=== PATIENT | male | born 1970 | race Caucasian/White ===

== ENCOUNTER 2018-12-17 16:40 | Emergency (ER) | payer MEDICARE, MEDICAID ==
[~2018-12-17] VITALS: Ht 162.6 cm; Wt 90.7 kg
--- NOTE | 2018-12-17 16:40 | NUR ---
PT TO ED 5 AMBULATORY. SEE TRIAGE NOTE. PT IS NOT ON BLOOD THINNER. NO LOC. PRIOR HX BRAIN SURGERY--SUBDURAL HEMATOMA WITH BRAIN SHIFT AFTER A FALL HITTING POSTERIOR HEAD. PT HAD BORE HOLES PLACED AT THAT TIME 2000. 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 MADE AWARE OF PRIOR HEAD INJURY HX.
--- NOTE | 2018-12-17 16:56 | ED Integumentary General ---
General Chief Complaint: Scalp laceration Stated Complaint: LT SIDE HEAD LAC Source: patient, family Exam Limitations: no limitations History of Present Illness Date Seen by Provider: Dec 17, 2018 Time Seen by Provider: 16:50 Timing/Duration: just prior to arrival 48-year-old male who had a truck beavers hit his posterior head on he was working underneath the beavers. Is occurred approximately 20 minutes ago. He is on no blood thinners, no ibuprofen or aspirin, no antiplatelets. He did not lose consciousness, has no nausea, no change in vision, no weakness, no headache. His last tetanus shot was approximately one year ago. Allergies and Home Medications Allergies Coded Allergies: No Known Drug Allergies (Unverified , 12/17/18) Patient Home Medication List Home Medication List Reviewed: Yes Review of Systems Review of Systems Constitutional: see HPI EENTM: see HPI Cardiovascular: no symptoms reported Psychiatric/Neurological: No Symptoms Reported Past Ysboqvd-Ubhtez-Enwqng Hx Past Med/Social Hx: Reviewed Nursing Past Med/Soc Hx Patient Social History Recent Foreign Travel: No Contact w/Someone Who Travel: No Physical Exam Vital Signs Capillary Refill : General Appearance: WD/WN, no apparent distress HEENT: PERRL/EOMI, normal ENT inspection, TMs normal, pharynx normal, other ( Positive curvilinear laceration over the posterior scalp) Neck: non-tender, full range of motion, supple, normal inspection Cardiovascular: normal peripheral pulses, regular rate, rhythm, no edema, no gallop, no JVD, no murmur Respiratory: chest non-tender, lungs clear, normal breath sounds, no respiratory distress, no accessory muscle use 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 There were no debris or foreign bodies noted 7 rossy. Progress/Results/Core Measures Results/Orders My Orders Orders - NOLAN BROTHERS MD Lidocaine 1% Inj 20 Ml (Xylocaine 1% Inj (12/17/18 16:58) Lidocaine 1% Inj 20 Ml (Xylocaine 1% Inj (12/17/18 17:15) Medications Given in ED Current Medications Medications Dose Ordered Sig/Katya Route Start Time Stop Time Status Last Admin Dose Admin Lidocaine HCl 20 ml ONCE ONCE INJ 12/17/18 17:15 12/17/18 17:16 DC 12/17/18 17:15 20 ML Departure Impression Primary Impression: Laceration of scalp Disposition: HOME, SELF-CARE Condition: Improved Departure-Patient Inst. Decision time for Depature: 17:24 Referrals: NO,LOCAL PHYSICIAN (PCP) Primary Care Physician Patient Instructions: Laceration Repair With Rossy (DC) Add. Discharge Instructions: return to ED in 7-10 days for staple removal. NOLAN BROTHERS MD Dec 17, 2018 16:56
[2018-12-17] MEDS ORDERED: LIDOCAINE 1% INJ 20 ML 20 ML VIAL ONE (16:58)
--- NOTE | 2018-12-17 17:05 | NUR ---
IRRIGATION WITH EXTENSIVE CLEANING WITH BETASEPT PERFORMED. DR ASKED FOR RAZOR TO TRIM HAIR AWARE FROM SITE.
[2018-12-17] MEDS ORDERED: LIDOCAINE 1% INJ 20 ML 20 ML VIAL INJ ONE (17:15)
--- NOTE | 2018-12-17 17:20 | NUR ---
PT HAD REPAIR WORK OF LAC COMPLETED WITH 7 MEAGAN PLACED. PT TOLERATED WELL. ASKED MD REGARDING A CT HEAD NEEDED OR NOT AND DR REPORTED PT'S NEURO EXAMINE APPEARS NORMAL AND HE WOULD NOT ORDER UNLESS THEY WANTED ONE PER THEIR REQUEST. DECLINATION AT THIS TIME.
[2018-12-17 17:35] VITALS: BP 138/90
== END 2018-12-17 17:35 | disposition home or self-care (01) ==
LOC: EDUNIT# 16:44 → ER FS 16:45
DX: S01.01XA Laceration without foreign body of scalp, initial encounter (principal); W22.09XA Striking against other stationary object, initial encounter
CPT/HCPCS: 12002

== ENCOUNTER → 2018-12-19 | Outpatient (CLI) | payer MEDICAID, MEDICARE ==
[~2018-12-19] MED LIST: CATHETER FLUSH 10 ML SYR IV PRN
--- NOTE | 2018-12-19 19:41 | Diagnostic Imaging Report ---
INDICATION: Right upper quadrant abdominal pain. EXAMINATION: Nuclear hepatobiliary study performed in the routine fashion with intravenous injection of 5.29 mCi of technetium 99m Choletec. FINDINGS: There is prompt uptake of the tracer by the liver. Tracer is visualized in the biliary tree within 10-15 minutes. Tracer is visualized in the gallbladder within 10-15 minutes. Tracer is visualized in the small bowel within 1 hour. The patient was then given Ensure, orally. The gallbladder ejection fraction was calculated. The calculated gallbladder ejection fraction was 47 percent. IMPRESSION: Normal nuclear hepatobiliary study with normal gallbladder ejection fraction. Dictated by: Dictated on workstation # [id number]
== END ==
LOC: CARD 09:15 → EDUNIT# 12-25 10:00
PROVIDERS: ATTEND Pediatrics
DX: R10.11 Right upper quadrant pain (principal)
CPT/HCPCS: 78227

== ENCOUNTER 2018-12-23 13:24 | Emergency (ER) | payer MEDICARE, MEDICAID ==
[~2018-12-23] VITALS: Ht 162.6 cm; Wt 90.7 kg
[2018-12-23 13:30] VITALS: BP 127/98
--- NOTE | 2018-12-23 13:30 | NUR ---
PT ARRIVAL FOR SUTURAL REMOVAL ORDERED TO BE REMOVED IN 7-10 DA[address] FROM DECEMBER 17. [address] SR'S SUTURES TO BE REMOVED.
--- NOTE | 2018-12-23 13:35 | NUR ---
PT DISCHARGED AFTER REMOVAL OF 7 MEAGAN. NOTED LOOSENING OF LARGE SCABS OF BLOOD AND ADVISING TO NOT PICK AT SCABS OR ABRASIVELY RUB. CONTINUE CLEAN WATER OVER AREA LIKE SHOWERING BUT NO SWIMMING, HOT TUBS, OR EXPOSURE TO DIRTY/CONTAMINATED WATER. KEEP CLEAN WITH DAILY WASHING AND ALLOW TO REMAIN DRY FOR ANOTHER WEEK OF HEALING.
== END 2018-12-23 13:35 | disposition home or self-care (01) ==
LOC: EDUNIT# 13:24 → ER FS 13:26
DX: S01.81XD Laceration without foreign body of other part of head, subsequent encounter (principal); X58.XXXD Exposure to other specified factors, subsequent encounter

== ENCOUNTER → 2018-12-24 | Outpatient (CLI) | payer MEDICARE, MEDICAID ==
[~2018-12-24] MED LIST changes: -CATHETER FLUSH 10 ML SYR IV PRN; +IOHEXOL 350 MG/ML 100 ML (OMNIPAQUE 350) VIAL IV ONE; +NS 100 ML (IVPB) BAG IV ONE; +RECEIVED CONTRAST 20 ML VIAL IV SCH
[2018-12-24 09:34] LABS: ALANINE AMINOTRANSFERASE 81 U/L (0-55); ALBUMIN 4.2 GM/DL (3.2-4.5); ALKALINE PHOSPHATASE 73 U/L (40-136); BILIRUBIN,TOTAL 0.6 MG/DL (0.1-1.0); BUN/CREATININE RATIO 16; CALCIUM 9.2 MG/DL (8.5-10.1); CARBON DIOXIDE 22 MMOL/L (21-32); CHLORIDE 107 MMOL/L (98-107); CREATININE SERUM 0.96 MG/DL (0.60-1.30); GFR ESTIMATED > 60; GLUCOSE 125 MG/DL (70-105); POTASSIUM 4.4 MMOL/L (3.6-5.0); SODIUM 139 MMOL/L (135-145)
--- NOTE | 2018-12-24 10:45 | Diagnostic Imaging Report ---
PROCEDURE: CT abdomen and pelvis with contrast. TECHNIQUE: Multiple contiguous axial images were obtained through the abdomen and pelvis after administration of intravenous contrast. INDICATION: Right lower quadrant pain and elevated liver enzymes. FINDINGS: The heart size is normal. The lung bases are clear. The liver is normal in size without focal lesions. The gallbladder is unremarkable. There is no biliary ductal dilatation. The spleen is normal. The pancreas, adrenal glands, and kidneys are normal in appearance. The aorta is nonaneurysmal. The bowel gas pattern is nonspecific. There is no free air. There is no ascites. There are no focal inflammatory changes. There is no pelvic mass, adenopathy, or free fluid. The bladder is normal. There are mild degenerative changes in the spine. The appendix is normal. IMPRESSION: No acute abnormality in the abdomen or pelvis. Dictated by: Dictated on workstation # [id number]
== END ==
LOC: RAD 08:58
PROVIDERS: ATTEND Pediatrics
DX: R10.31 Right lower quadrant pain (principal); R94.5 Abnormal results of liver function studies
CPT/HCPCS: 36415; 74177; 80053

== ENCOUNTER 2018-12-28 21:13 | Emergency (ER) | payer MEDICAID, MEDICARE ==
[~2018-12-28] VITALS: Ht 165.1 cm; Wt 90.7 kg
[2018-12-28] MEDS ORDERED: NS IV 1000 ML 1,000 ML ONE (21:52)
[2018-12-28] MEDS ORDERED: ACETAMINOPHEN 500 MG TAB (TYLENOL) ONE (21:52)
[2018-12-28] MEDS: NS IV 1000 ML 1,000 ML IV SCH ×2 (21:56→22:42)
[2018-12-28 22:19] LABS: BASOPHILS % (AUTO) 0 % (0-10); EOSINOPHILS % (AUTO) 1 % (0-10); HEMATOCRIT 42 % (40-54); HEMOGLOBIN 15.2 G/DL (13.3-17.7); LYMPHOCYTES # (AUTO) 0.6 X 10^3 (1.0-4.0); LYMPHOCYTES % (AUTO) 11 % (12-44); MEAN CORPUSCULAR HEMOGLOBIN 32 PG (25-34); MEAN CORPUSCULAR HGB CONC 36 G/DL (32-36); MEAN CORPUSCULAR VOLUME 90 FL (80-99); MEAN PLATELET VOLUME 10.1 FL (7.4-10.4); MONOCYTES # (AUTO) 0.9 X 10^3 (0.0-1.0); MONOCYTES % (AUTO) 17 % (0-12); NEUTROPHILS # (AUTO) 3.6 X 10^3 (1.8-7.8); NEUTROPHILS % (AUTO) 70 % (42-75); PLATELET COUNT 139 10^3/uL (130-400); RED CELL DISTRIBUTION WIDTH 12.6 % (10.0-14.5); WHITE BLOOD COUNT 5.1 10^3/uL (4.3-11.0)
[2018-12-28 22:20] LABS: BILIRUBIN,URINE NEGATIVE (NEGATIVE); CLARITY,URINE CLEAR; COLOR,URINE YELLOW; GLUCOSE, URINE (UA) NEGATIVE (NEGATIVE); KETONES,URINE 2+ (NEGATIVE); LEUKOCYTE ESTERASE ,URINE 1+ (NEGATIVE); NITRITE,URINE NEGATIVE (NEGATIVE); PH,URINE 5 (5-9); PROTEIN,URINE 2+ (NEGATIVE); UROBILINOGEN,URINE 1 MG/DL (NORMAL)
[2018-12-28 22:26] LABS: BACTERIA,URINE TRACE /HPF; RBC,URINE RARE /HPF; SQUAMOUS EPITHELIAL CELL,UR RARE /HPF; WBC,URINE RARE /HPF
[2018-12-28] MEDS ORDERED: FAMOTIDINE 20 MG (PEPCID) TABLET PO STA (22:27)
[2018-12-28] MEDS ORDERED: cefTRIAXone FOR IV USE 1,000 MG in WATER (STERILE) FOR INJECTION 10 ML IV ONE (22:30)
[2018-12-28] MEDS ORDERED: LIDOCAINE 2% VISCOUS 15 ML UDC PO ONE (22:30)
[2018-12-28] MEDS ORDERED: metroNIDAZOLE 500MG/100ML IVPB 100 ML IV ONE (22:30)
[2018-12-28] MEDS ORDERED: ANTACID SUSP 30 ML UDC (MYLANTA) PO ONE (22:30)
[2018-12-28 22:32] LABS: ALANINE AMINOTRANSFERASE 136 U/L (0-55); ALBUMIN 4.4 GM/DL (3.2-4.5); ALKALINE PHOSPHATASE 72 U/L (40-136); BILIRUBIN,TOTAL 0.9 MG/DL (0.1-1.0); BUN/CREATININE RATIO 12; CALCIUM 8.9 MG/DL (8.5-10.1); CARBON DIOXIDE 23 MMOL/L (21-32); CHLORIDE 99 MMOL/L (98-107); CREATININE SERUM 1.23 MG/DL (0.60-1.30); GFR ESTIMATED > 60; GLUCOSE 106 MG/DL (70-105); POTASSIUM 4.1 MMOL/L (3.6-5.0); PROTHROMBIN TIME PATIENT 13.1 SEC (12.2-14.7); SODIUM 132 MMOL/L (135-145); TOTAL PROTEIN 7.3 GM/DL (6.4-8.2)
--- NOTE | 2018-12-28 22:34 | ED Abdominal Pain ---
General Chief Complaint: Fever-Adult/Adol Stated Complaint: FEVER,ABD PAIN Nursing Triage Note: PT PRESENTS TO ER WITH COMPLAINT OF BACK PAIN THAT RADIATES TO ABD. STATES HE HAS BEEN SEEING DR SALDANA FOR SYMTPOMS, HAS HAD LAB WORK, ABD CT SCAN AND HIDA SCAN DONE. ONLY RESULTS WERE MILDLY ELEVATED LIVER ENZYMES. STATES HE IS HAVING DIFFICULTY URINATING. STATES STARTED RUNNING FEVER TODAY. LAST TOOK TYLNEOL AT 1400. Sepsis Screen: No Definite Risk Source of Information: Patient, Spouse Exam Limitations: No Limitations History of Present Illness Date Seen by Provider: Dec 28, 2018 Time Seen by Provider: 22:24 Initial Comments Patient presents ER by private conveyance with chief complaint of abdominal pain starting in his back wrapping around his left and right upper quadrants as well as his epigastric region. He is not having any nausea right now. He does feel a little distended but is passing gas and belching both. He's been worked up outpatient with ultrasound and HIDA scan by Dr. Saldana and they found some biliary sludge but nothing else. 4 days ago he had a CT scan for his abdominal pain that did not reveal anything. Today however he developed a fever 102. His gave him some Tylenol thousand grams about 2:00 in the afternoon. Takes meloxicam she cannot take ibuprofen. In his not been on any antibiotics. No coughing, wheezing, shortness of breath, diarrhea. Allergies and Home Medications Allergies Coded Allergies: No Known Drug Allergies (Unverified , 12/17/18) Patient Home Medication List Home Medication List Reviewed: Yes Review of Systems Review of Systems Constitutional: chills, fever, malaise EENTM: No Blurred Vision, No Double Vision Respiratory: Denies Cough, Denies Shortness of Air, Denies SOA With Exertion, Denies Wheezing Cardiovascular: Denies Chest Pain, Denies Edema Gastrointestinal: See HPI, Abdomen Distended, Abdominal Pain; Denies Nausea; Poor Appetite, Poor Fluid Intake; Denies Vomiting Genitourinary: Denies Discharge, Denies Drainage Musculoskeletal: No back pain, No joint pain Skin: No pruritus, No rash Psychiatric/Neurological: Denies Headache, Denies Numbness Past Jlprwwi-Facwue-Vbwzam Hx Patient Social History Alcohol Use: Denies Use Recreational Drug Use: No Smoking Status: Former Smoker Type Used: Cigarettes, Smokeless Tobacco Former Smoker, Quit: Oct 15, 2018 Recent Foreign Travel: No Contact w/Someone Who Travel: No Recent Infectious Disease Expo: No Recent Hopitalizations: No Immunizations Up To Date Tetanus Booster (TDap): Unknown PED Vaccines UTD: Yes Seasonal Allergies Seasonal Allergies: No Past Medical History Surgeries: Yes (BRAIN SURGERY, ESOPHAGEAL DILITATION, TRAUMA SUTURING ) Respiratory: No Cardiac: Yes Hypertension Neurological: Yes (SUBDURAL HEMATOMA WITH BRAIN SHIFT) Traumatic Brain Injury Genitourinary: No Gastrointestinal: Yes Gall Bladder Disease Musculoskeletal: No Endocrine: No HEENT: No Cancer: No Psychosocial: No Integumentary: Yes Eczema, Psoriasis Blood Disorders: No Physical Exam Vital Signs Vital Signs - First Documented 12/28/18 21:37 Temp 102.8 Pulse 116 Resp 17 B/P (MAP) 143/92 (109) Pulse Ox 94 O2 Delivery Room Air Capillary Refill : Less Than 3 Seconds Height/Weight/BMI Height: 5'5.00" Weight: 200lbs. oz. 90.224379lk; 28.12 BMI Method:Stated General Appearance: WD/WN, mild distress HEENT: PERRL/EOMI, normal ENT inspection, pharynx normal Neck: non-tender, full range of motion Respiratory: chest non-tender, lungs clear, normal breath sounds, no respiratory distress, no accessory muscle use Cardiovascular: normal peripheral pulses, regular rate, rhythm, no edema Peripheral Pulses: 2+ Radial Pulses (R), 2+ Radial Pulses (L) Gastrointestinal: normal bowel sounds, soft, no organomegaly, tenderness ( epigastric region [id number]), other (negative for Olivas sign or mesenteric signs.) Neurologic/Psychiatric: alert, normal mood/affect, oriented x 3 Skin: normal color, warm/dry Focused Exam Lactate Level 12/28/18 21:50: Lactic Acid Level 0.86 Lactic Acid Level Laboratory Tests Test 12/28/18 21:50 Lactic Acid Level 0.86 MMOL/L (0.50-2.00) Progress/Results/Core Measures Results/Orders Lab Results Laboratory Tests Test 12/28/18 21:50 Range/Units White Blood Count 5.1 4.3-11.0 10^3/uL Red Blood Count 4.74 4.35-5.85 10^6/uL Hemoglobin 15.2 13.3-17.7 G/DL Hematocrit 42 40-54 % Mean Corpuscular Volume 90 80-99 FL Mean Corpuscular Hemoglobin 32 25-34 PG Mean Corpuscular Hemoglobin Concent 36 32-36 G/DL Red Cell Distribution Width 12.6 10.0-14.5 % Platelet Count 139 130-400 10^3/uL Mean Platelet Volume 10.1 7.4-10.4 FL Neutrophils (%) (Auto) 70 42-75 % Lymphocytes (%) (Auto) 11 L 12-44 % Monocytes (%) (Auto) 17 H 0-12 % Eosinophils (%) (Auto) 1 0-10 % Basophils (%) (Auto) 0 0-10 % Neutrophils # (Auto) 3.6 1.8-7.8 X 10^3 Lymphocytes # (Auto) 0.6 L 1.0-4.0 X 10^3 Monocytes # (Auto) 0.9 0.0-1.0 X 10^3 Eosinophils # (Auto) 0.0 0.0-0.3 10^3/uL Basophils # (Auto) 0.0 0.0-0.1 10^3/uL Prothrombin Time 13.1 12.2-14.7 SEC INR Comment 1.0 0.8-1.4 Activated Partial Thromboplast Time 36 H 24-35 SEC Urine Color YELLOW Urine Clarity CLEAR Urine pH 5 5-9 Urine Specific [place] 1.020 1.016-1.022 Urine Protein 2+ H NEGATIVE Urine Glucose (UA) NEGATIVE NEGATIVE Urine Ketones 2+ H NEGATIVE Urine Nitrite NEGATIVE NEGATIVE Urine Bilirubin NEGATIVE NEGATIVE Urine Urobilinogen 1 NORMAL MG/DL Urine Leukocyte Esterase 1+ H NEGATIVE Urine RBC (Auto) 1+ H NEGATIVE Urine RBC RARE /HPF Urine WBC RARE /HPF Urine Squamous Epithelial Cells RARE /HPF Urine Crystals NONE /LPF Urine Bacteria TRACE /HPF Urine Casts NONE /LPF Urine Mucus SMALL H /LPF Urine Culture Indicated CULTURE PENDING Sodium Level 132 L 135-145 MMOL/L Potassium Level 4.1 3.6-5.0 MMOL/L Chloride Level 99 98-107 MMOL/L Carbon Dioxide Level 23 21-32 MMOL/L Anion Gap 10 5-14 MMOL/L Blood Urea Nitrogen 15 7-18 MG/DL Creatinine 1.23 0.60-1.30 MG/DL Estimat Glomerular Filtration Rate > 60 BUN/Creatinine Ratio 12 Glucose Level 106 H 70-105 MG/DL Lactic Acid Level 0.86 0.50-2.00 MMOL/L Calcium Level 8.9 8.5-10.1 MG/DL Corrected Calcium 8.6 8.5-10.1 MG/DL Total Bilirubin 0.9 0.1-1.0 MG/DL Aspartate Amino Transf (AST/SGOT) 80 H 5-34 U/L Alanine Aminotransferase (ALT/SGPT) 136 H 0-55 U/L Alkaline Phosphatase 72 40-136 U/L Total Protein 7.3 6.4-8.2 GM/DL Albumin 4.4 3.2-4.5 GM/DL Lipase 12 8-78 U/L My Orders Orders - ANA LUISA NEVES Ns Iv 1000 Ml (Sodium Chloride 0.9%) (12/28/18 21:52) Acetaminophen Tablet (Tylenol Tablet) (12/28/18 21:52) Cbc With Automated Diff (12/28/18 22:12) Comprehensive Metabolic Panel (12/28/18 22:12) Ua Culture If Indicated (12/28/18 22:12) Lactic Acid Analyzer (12/28/18 22:12) Blood Culture (12/28/18 22:12) Blood Culture (12/28/18 22:18) Urine Culture (12/28/18 22:18) Protime With Inr (12/28/18 22:18) Partial Thromboplastin Time (12/28/18 22:18) Chest 1 View, Ap/Pa Only (12/28/18 22:18) Saline Lock/Iv-Start (12/28/18 22:18) Saline Lock/Iv-Start (12/28/18 22:18) Vital Signs Adult Sepsis Patie Q15M (12/28/18 22:18) O2 (12/28/18 22:18) Remove Rings In Anticipation O (12/28/18 22:18) Ns Iv 1000 Ml (Sodium Chloride 0.9%) (12/28/18 22:18) Ceftriaxone For Iv Use (Rocephin For I (12/28/18 22:30) Metronidazole 500mg/100ml Ivpb (Flagyl 5 (12/28/18 22:30) Lipase (12/28/18 22:27) Lidocaine 2% Viscous 15 Ml (Xylocaine Vi (12/28/18 22:30) Famotidine Tablet (Pepcid Tablet) (12/28/18 22:27) Antacid Suspension (Mylanta Suspension (12/28/18 22:30) Ct Abdomen/Pelvis W (12/28/18 22:30) Iohexol Injection (Omnipaque 350 Mg/Ml 1 (12/28/18 23:00) Received Contrast (Contrast Received) (12/28/18 23:00) Ns (Ivpb) (Sodium Chloride 0.9% Ivpb Bag (12/28/18 23:00) Influenza A And B Antigens (12/29/18 00:12) Medications Given in ED Current Medications Medications Dose Ordered Sig/Katya Route Start Time Stop Time Status Last Admin Dose Admin Acetaminophen 500 mg STK-MED ONCE .ROUTE 12/28/18 21:52 12/28/18 21:54 DC 12/28/18 21:56 1,000 MG Al Hydrox/Mg Hydrox/Simethicone 30 ml ONCE ONCE PO 12/28/18 22:30 12/28/18 22:31 DC 12/28/18 22:42 30 ML Ceftriaxone Sodium 1000 mg/ Sterile Water 10 ml @ 200 mls/hr ONCE ONCE IV 12/28/18 22:30 12/28/18 22:32 DC 12/28/18 22:42 200 MLS/HR Iohexol 100 ml ONCE ONCE IV 12/28/18 23:00 12/28/18 23:01 DC 12/28/18 23:08 100 ML Lidocaine HCl 15 ml ONCE ONCE PO 12/28/18 22:30 12/28/18 22:31 DC 12/28/18 22:42 15 ML Metronidazole 100 ml @ 100 mls/hr ONCE ONCE IV 12/28/18 22:30 12/28/18 23:29 DC 12/28/18 23:17 100 MLS/HR Sodium Chloride 100 ml ONCE ONCE IV 12/28/18 23:00 12/28/18 23:01 DC 12/28/18 23:08 80 ML Vital Signs/I&O 12/28/18 12/28/18 21:37 21:56 Temp 102.8 102.8 Pulse 116 Resp 17 B/P (MAP) 143/92 (109) Pulse Ox 94 O2 Delivery Room Air 12/28/18 23:59 Intake Total 10 ml Balance 10 ml Blood Pressure Mean: 109 Progress Progress Note : Time: 22:37 Progress Note HIDA scan from December 19, 9 days ago demonstrated a normal ejection fraction. CT of the abdomen pelvis 4 days ago was unremarkable. Septic workup, 2 L of fluid, Rocephin and Flagyl. Tylenol 1000 mg. Diagnostic Imaging Diagonstic Imaging: CT (with IV contrast) Plain Films/CT/US/NM/MRI: abdomen, pelvis Comments No acute findings. Reviewed: Reviewed by Me Departure Impression Primary Impression: Influenza B Disposition: HOME, SELF-CARE Condition: Improved Departure-Patient Inst. Decision time for Depature: 00:42 Referrals: MY SALDANA MD (PCP/Family) Primary Care Physician Patient Instructions: Flu, Adult (DC) Add. Discharge Instructions: If you choose to take the Tamiflu it may decrease the length of the fluid and how severe it is by one or 2 days. Take one capsule twice a day for the next 5 days. Drink plenty of fluids especially sports drinks. Use the Tylenol 1000 mg every 8 hours as necessary for fever. Use the Zofran 1 tablet every 6 hours as needed for nausea. For your abdominal pain you can take Carafate 30 minutes prior to meals and at bedtime for the next 2 weeks. Follow-up with primary care for endoscopy. All discharge instructions reviewed with patient and/or family. Voiced understanding. Scripts Sucralfate (Carafate) 1 Gm Tablet 1 GM PO QIDACHS for 14 Days, #56 TAB 0 Refills Prov: ANA LUISA NEVES 12/29/18 Benzonatate (Tessalon Perle) 100 Mg Capsule 100 MG PO Q6H PRN for COUGH, #20 CAP 0 Refills Prov: ANA LUISA NEVES 12/29/18 Oseltamivir Phosphate (Tamiflu) 75 Mg Cap 75 MG PO BID for 5 Days, #10 CAP 0 Refills Prov: ANA LUISA NEVES 12/29/18 Ondansetron (Ondansetron Odt) 4 Mg Tab.rapdis 4 MG PO Q6H PRN for NAUSEA/VOMITING, #12 TAB 0 Refills Prov: ANA LUISA NEVES 12/29/18 ANA LUISA NEVES Dec 28, 2018 22:34
[2018-12-28] MEDS ORDERED: NS 100 ML (IVPB) BAG IV ONE (23:00)
[2018-12-28] MEDS ORDERED: HOLD METFORMIN - RECEIVED CONTRAST 20 ML VIAL IV SCH (23:00)
[2018-12-28] MEDS ORDERED: IOHEXOL 350 MG/ML 100 ML (OMNIPAQUE 350) VIAL IV ONE (23:00)
[2018-12-29] MEDS ORDERED: ONDA4TAB11 PO (00:53)
[2018-12-29] MEDS ORDERED: OSLT75C PO (00:53)
[2018-12-29] MEDS ORDERED: SUCR1TAB36 PO (00:53)
[2018-12-29] MEDS ORDERED: BENZ-13 PO (00:53)
[2018-12-29 01:15] VITALS: BP 123/79
--- NOTE | 2018-12-29 06:51 | Diagnostic Imaging Report ---
INDICATION: Chest pain Portable chest 10:51 PM Heart size and pulmonary vascularity are normal. Lungs are clear. There are no effusions or pneumothoraces. IMPRESSION: Negative chest. Dictated by: Dictated on workstation # [id number]
--- NOTE | 2018-12-29 07:30 | Diagnostic Imaging Report ---
PROCEDURE: CT abdomen and pelvis with contrast. TECHNIQUE: Multiple contiguous axial images were obtained through the abdomen and pelvis after administration of intravenous contrast. INDICATION: Abdominal pain. COMPARISON: CT abdomen and pelvis with IV contrast 12/24/2018. FINDINGS: Lung bases are clear. The liver, gallbladder, pancreas, spleen, adrenals, kidneys, collecting systems, bladder and appendix are negative. No free intraperitoneal air or fluid. No lymphadenopathy. No evidence of bowel obstruction or inflammation. No acute osseous findings. IMPRESSION: No acute CT findings in the abdomen or pelvis. Dictated by: Dictated on workstation # [id number]
== END 2018-12-29 01:15 | disposition home or self-care (01) ==
LOC: EDUNIT# 21:13 → ER 21:16
DX: J10.1 Influenza due to other identified influenza virus with other respiratory manifestations (principal); I10 Essential (primary) hypertension; Z87.820 Personal history of traumatic brain injury; Z87.891 Personal history of nicotine dependence; Z87.19 Personal history of other diseases of the digestive system
CPT/HCPCS: 36415; 71045; 74177; 80053; 81000; 83605; 83690; 85025; 85610; 85730; 87040; 87088; 87804

== ENCOUNTER 2019-01-20 07:26 | Outpatient (CLI) | payer MEDICARE ==
[~2019-01-20] VITALS: Ht 165.1 cm; Wt 87.5 kg
[~2019-01-20 07:26] MED LIST changes: +BENZ-13 PO; -IOHEXOL 350 MG/ML 100 ML (OMNIPAQUE 350) VIAL IV ONE; -NS 100 ML (IVPB) BAG IV ONE; +ONDA4TAB11 PO; +OSLT75C PO; -RECEIVED CONTRAST 20 ML VIAL IV SCH; +SUCR1TAB36 PO
[2019-01-20] MEDS ORDERED: MELO15TA39 PO (13:25)
[2019-01-20] MEDS ORDERED: SENN-36 PO (13:25)
[2019-01-20] MEDS ORDERED: ADAL40PE SQ (13:25)
[2019-01-20] MEDS ORDERED: FLUT9.9S NS (13:25)
[2019-01-20] MEDS ORDERED: KRIL1CAP31 PO (13:25)
[2019-01-20] MEDS ORDERED: ASPI-999 PO (13:25)
[2019-01-20] MEDS ORDERED: ATOR20TA66 PO (13:25)
[2019-01-20] MEDS ORDERED: CYCL10TA9 PO (13:25)
[2019-01-20] MEDS ORDERED: OMEP20CA12 PO (13:25)
[2019-01-20] MEDS ORDERED: CETI10TA17 PO (13:25)
== END 2019-01-20 13:27 | disposition home or self-care (01) ==
LOC: PREOP 07:26
PROVIDERS: ATTEND Pediatrics
DX: Z01.818 Encounter for other preprocedural examination (principal)

== ENCOUNTER 2019-01-23 07:20 | Day surgery (SDC) | payer MEDICARE, MEDICAID ==
[~2019-01-23] VITALS: Ht 165.1 cm; Wt 87.5 kg
[~2019-01-23 07:20] MED LIST changes: +ADAL40PE SQ; +ASPI-999 PO; +ATOR20TA66 PO; +CETI10TA17 PO; +CYCL10TA9 PO; +FLUT9.9S NS; +KRIL1CAP31 PO; +MELO15TA39 PO; +OMEP20CA12 PO; +SENN-36 PO
[2019-01-23] MEDS ORDERED: NS IV 500 ML 500 ML ONE (07:31)
[2019-01-23 07:51] VITALS: BP 135/91
[2019-01-23] MEDS ORDERED: fentaNYL INJECTION 100 MCG/2 ML AMP IVP ONE (08:00)
[2019-01-23] MEDS ORDERED: HURRICAINE EXT TUBE (BENZOCAINE) XX PRN (08:00)
[2019-01-23] MEDS ORDERED: MIDAZOLAM 2 MG/2 ML (VERSED) VIAL IVP ONE (08:00)
[2019-01-23] MEDS ORDERED: MIDAZOLAM 2 MG/2 ML (VERSED) VIAL ONE ×6 (08:04→08:31)
[2019-01-23] MEDS ORDERED: fentaNYL INJECTION 100 MCG/2 ML AMP ONE (08:04)
[2019-01-23] MEDS ORDERED: HURRICAINE EXT TUBE (BENZOCAINE) ONE (08:04)
--- NOTE | 2019-01-23 08:12 | Pre-Op Note & Conscious Sedat ---
Pre-Operative Progress Note H&P Reviewed The H&P was reviewed, patient examined and no changes noted. Date H&P Reviewed: Jan 23, 2019 Time H&P Reviewed: 08:11 Pre-Op Diagnosis: abd pain and weight loss Conscious Sedation Pre-Proced Time 08:12 ASA Score 2 For ASA 3 and 4: Consider anesthesia and medical clearance. Also, for patients with a history of failed moderate sedation consider anesthesia. Airway Lungs Heart ASA score ASA 1: a normal healthy patient ASA 2: a patient with a mild systemic disease (mid diabetes, controlled hypertension, obesity ASA 3: a patient with a severe systemic disease that limits activity (angina , COPD, prior Myocardial infarction) ASA 4: a patient with an incapacitating disease that is a constant threat to life (CHF, renal failure) ASA 5: a moribund patient not expected to survive 24 hrs. (ruptured aneurysm) ASA 6: a declared brain- patient whose organs are being harvested. For emergent operations, add the letter E after the classification Mallampati Classification Grade 2 Sedation Plan Analgesia, Amnesia, Plan communicated to team members, Discussed options with patient/fam, Discussed risks with patient/fam The patient is an appropriate candidate to undergo the planned procedure, sedation, and anesthesia. The patient immediately re-assessed prior to indication. MY BARBOZA MD Jan 23, 2019 08:12
[2019-01-23] MEDS ORDERED: NS IV 500 ML 500 ML IV SCH (08:45)
--- NOTE | 2019-01-23 08:55 | Endoscopy Procedure Report ---
EGD Procedure Performed: EGD Pre-Operative Diagnosis: abd pain Post-Operative Diagnosis: gastritis and schatski's ring Media Law Faculty Member: None. Procedure Details: Informed consent was obtained for the procedure, including conscious sedation. Risks of pancreatitis, infection, perforation, hemorrhage, adverse drug reaction , and aspiration were discussed. Doe Douglass Jr, a 48 yr old male, was brought to the surgery area, sedated with 10mg OF Versed and 100 ug of fentanyl. The patient was placed in the left lateral decubitus position. He was monitored continuously with ECG tracing, pulse oximetry, blood pressure monitoring and direct observation. The olympus gastroscope was inserted into the mouth and advanced under direct vision to second portion of the duodenum. A careful inspection was made as the gastroscope was withdrawn, including a retroflexed view of the proximal stomach ; findings and interventions are described below. Appropriate photodocumentation. Findings: diffuse antral inflammation and hiatal hernia with schatski;s ring non obstructive Estimated Blood Loss: 0mL Specimens: antral biopsy and h pylori test Complications: None; patient tolerated the procedure well. MY BARBOZA MD Jan 23, 2019 08:55
--- NOTE | 2019-01-23 08:56 | Endoscopy Procedure Report ---
Colonoscopy Procedure Performed: Colonoscopy Pre-Operative Diagnosis: abd pain Post-Operative Diagnosis: abd pain Manufacturing Operations Manager: None. Indications for Procedure: persistent abdominal pain Procedure Details: Informed consent was obtained, the risks, benefits and alternatives to the procedure were explained to the patient. The Doe Douglass Jr, a 48 yr old male, was brought to to surgery area, sedated with 10 mg of Versed and 100 ug of fentanyl. He was placed in the left lateral decubitus position. Under direct visualization the scope was passed easily to the cecum. Cecum is identified by landmarks. Scope was carefully withdrawn. Findings: Ascending Colon: none Transverse Colon: none Descending/Sigmoid: none Rectum: none Estimated Blood Loss: 0mL Specimens: none Complications: None; patient tolerated the procedure well. Final Diagnosis: unremarkable MY BARBOZA MD Jan 23, 2019 08:56
[2019-01-23 09:05] VITALS: BP 133/84
[2019-01-23 09:30] VITALS: BP 145/104
[2019-01-23 09:45] VITALS: BP 145/104
== END 2019-01-23 09:45 | disposition home or self-care (01) ==
LOC: ENDO 07:20
PROVIDERS: ATTEND Pediatrics
DX: K22.2 Esophageal obstruction (principal); K29.50 Unspecified chronic gastritis without bleeding; K44.9 Diaphragmatic hernia without obstruction or gangrene; R10.11 Right upper quadrant pain; R14.0 Abdominal distension (gaseous); E78.5 Hyperlipidemia, unspecified; Z79.899 Other long term (current) drug therapy
CPT/HCPCS: 88305